=== PATIENT | female | born 1960 | race Asian ===

== ENCOUNTER 2021-09-02 08:45 | Outpatient (CLI) | payer BC ==
[2021-09-02] MEDS ORDERED: Iopamidol 300 61% 100 ML VIAL FS ONE (09:36)
== END 2021-09-02 08:46 | disposition home or self-care (01) ==
LOC: CSHCT 08:45
PROVIDERS: ATTEND Otolaryngology
DX: R22.1 Localized swelling, mass and lump, neck (principal)
CPT/HCPCS: 70491; Q9967

== ENCOUNTER 2023-06-18 13:28 | Outpatient (CLI) | payer BC | END 2023-06-18 13:29 | disposition home or self-care (01) | LOC: CSHMAMMO 13:28 | PROVIDERS: ATTEND Family Medicine | DX: Z12.31 Encounter for screening mammogram for malignant neoplasm of breast (principal); M81.0 Age-related osteoporosis without current pathological fracture; M85.89 Other specified disorders of bone density and structure, multiple sites | CPT/HCPCS: 77063; 77067; 77080 ==